=== PATIENT | female | born 1955 | race Caucasian/White ===

== ENCOUNTER 2020-04-14 15:39 | Outpatient (CLI) | payer MEDICARE, OTHER | END 2020-04-14 15:40 | disposition home or self-care (01) | LOC: CSHMRI 15:39 | PROVIDERS: ATTEND Family Medicine | DX: G89.4 Chronic pain syndrome (principal); M47.812 Spondylosis without myelopathy or radiculopathy, cervical region; M50.90 Cervical disc disorder, unspecified, unspecified cervical region; M54.12 Radiculopathy, cervical region; M79.18 Myalgia, other site | CPT/HCPCS: 72040; 72141 ==

== ENCOUNTER 2021-06-13 15:24 | Outpatient (CLI) | payer MEDICARE, OTHER | END 2021-06-13 15:25 | disposition home or self-care (01) | LOC: CSHMAMMO 15:24 | PROVIDERS: ATTEND Family Medicine | DX: Z12.31 Encounter for screening mammogram for malignant neoplasm of breast (principal); N63.20 Unspecified lump in the left breast, unspecified quadrant | CPT/HCPCS: 77063; 77067 ==

== ENCOUNTER 2021-06-15 12:53 | Outpatient (CLI) | payer MEDICARE, OTHER | END 2021-06-15 12:54 | disposition home or self-care (01) | LOC: CSHMAMMO 12:53 | PROVIDERS: ATTEND Family Medicine | DX: N63.20 Unspecified lump in the left breast, unspecified quadrant (principal); R92.8 Other abnormal and inconclusive findings on diagnostic imaging of breast | CPT/HCPCS: 77065; G0279 ==

== ENCOUNTER 2022-08-23 14:41 | Outpatient (CLI) | payer MEDICARE, OTHER | END 2022-08-23 14:42 | disposition home or self-care (01) | LOC: CSHMAMMO 14:41 | PROVIDERS: ATTEND Student in an Organized Health Care Education/Training Program | DX: Z12.31 Encounter for screening mammogram for malignant neoplasm of breast (principal); Z98.82 Breast implant status | CPT/HCPCS: 77063; 77067 ==

== ENCOUNTER 2023-10-03 14:23 | Outpatient (CLI) | payer MEDICARE, OTHER | END 2023-10-03 14:24 | disposition home or self-care (01) | LOC: CSHRAD 14:23 | PROVIDERS: ATTEND Student in an Organized Health Care Education/Training Program | DX: M53.3 Sacrococcygeal disorders, not elsewhere classified (principal); M47.818 Spondylosis without myelopathy or radiculopathy, sacral and sacrococcygeal region | CPT/HCPCS: 72202 ==